=== PATIENT | male | born 1990 | race Hispanic/Latino ===

== ENCOUNTER 2017-10-02 19:02 | Emergency (ER) | payer BC, SELFPAY ==
[~2017-10-02 19:02] MED LIST: ISOVUE-370 76%-LOCM 1 ML ONE
[2017-10-02 19:54] LABS: #Lymphocytes 0.6 thou/uL (1.20-3.40); #Monocytes 0.8 thou/uL (0.11-0.59); #Neutrophils 9.3 thou/uL (1.40-6.50); %Basophils 0.1 % (0.0-1.0); %Eosinophils 0.2 % (0.0-10.0); %Lymphocytes 5.6 % (21.0-51.0); %Monocytes 7.6 % (0.0-10.0); %Neutrophils 86.5 % (42.0-75.0); Hemoglobin 13.6 g/dL (14.0-18.0); Mean Corpuscular HGB CONC 33.7 g/dL (32.0-36.0); Mean Corpuscular Hemoglobin 26.6 pg (27.0-31.0); Mean Corpuscular Volume 79.1 fl (80.0-94.0); Mean Platelet Volume 9.6 fL (7.4-10.4); Platelet Count 135 thou/uL (130-400); RBC Distribution Width 13.1 % (11.5-14.5); White Blood Cell (WBC) Count 10.7 thou/uL (4.8-10.8)
[2017-10-02 19:56] LABS: ALT (SGPT) 23 U/L (8-55); AST (SGOT) 20 U/L (5-34); Albumin 4.3 g/dL (3.5-5.0); Alkaline Phosphatase 102 U/L (40-150); Anion Gap 12 mmol/L (10-20); BUN (Urea Nitrogen) 12 mg/dL (8.9-20.6); Calc. Creatinine Clearance 0 mL/min (70-130); Calcium 8.9 mg/dL (7.8-10.44); Carbon Dioxide 22 mmol/L (22-29); Chloride 103 mmol/L (98-107); Estimated GFR-MDRD 77; Globulin 3.6 g/dL (2.4-3.5); Glucose 128 mg/dL (70-105); Lipase 10 U/L (8-78); Potassium 3.2 mmol/L (3.5-5.1); Protein, Total 7.9 g/dL (6.0-8.3); Sodium 134 mmol/L (136-145)
[2017-10-02 20:19] LABS: Bilirubin Negative (Negative); Blood, Urine Negative (Negative); Clarity CLOUDY (Clear); Glucose, Urine (Dipstick) Negative (Negative); Leukocyte Negative (Negative); Nitrite Negative (Negative); Protein, Urine (Dipstick) Trace mg/dL (Neg-Trace); Urobilinogen 0.2 mg/dL (0.2-1.0); pH, Urine 6.5 (5.0-9.0)
--- NOTE | 2017-10-02 20:36 | CT ---
ABDOMEN AND PELVIC CT SCAN WITH IV CONTRAST: 10/02/17 HISTORY: Fever RLQ pain Lung bases are clear. The liver, gallbladder, pancreas, and adrenal glands are unremarkable. Minimal splenomegaly with the spleen measuring 15.3 cm in craniocaudal dimension. Tiny bilateral nonobstructing renal calculi are n oted. No evidence for obstruction. Normal appearing appendix. No evidence of bowel obstruction, ab scess, or abnormal fluid collection. IMPRESSION: Splenomegaly. Tiny nonobstructing renal calculi but no acute obstruction. Normal appearing appendi x. No other significant abnormality. POS: [facility]
== END 2017-10-02 21:44 | disposition home or self-care (01) ==
LOC: ERS 19:02
DX: R10.84 Generalized abdominal pain (principal); R50.9 Fever, unspecified; M10.9 Gout, unspecified
CPT/HCPCS: 74177; 80053; 81003; 83690; 85025; 96360; 96361